=== PATIENT | male | born 1990 | race Hispanic/Latino ===

== ENCOUNTER 2024-07-17 20:28 | Emergency (ER) | payer SELFPAY ==
--- OUTSIDE RECORDS SUMMARY | 2024-07-17 20:31 | XMS REPORT | Continuity of Care Document ---
Author Name Unknown Address [address] [facility] [address] [place] [address] [facility] Address [address] [facility] 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 Name Role Phone SILVERIO CEJA Primary Care Physician JUDSON Wade Attending Clinician Unavailable JUDSON DIALLO Attending Clinician Unavailable Judson Diallo DO Attending Clinician [phone] SILVERIO CEJA Attending Clinician UnavailSILVERIO Choi Attending Clinician UnavailMike Mcknight Attending Clinician [phone] MIKE CUMMINS Attending Clinician UnavailJUDSON Rees Admitting Clinician Unavailable Allergies, Adverse Reactions, Alerts Allergy Name Allergy Type Status Severity Reaction(s) Onset Date Inactive Date Treating Clinician Comments Source NO KNOWN ALLERGIE S Drug Class Active [facility] Social History Social Habit Start Date Stop Date Quantity Comments Source Sexual orientation U [facility] History of Social function 2022-09-04 00:00:00 2022-09-04 00:00:00 [facility] Exposure to SARS-CoV-2 (event) 2022-08-10 00:00:00 2022-08-20 00:50:[address] [facility] Sex assigned at 1990 00:00:00 1990 00:00:00 [facility] Smoking Status Start Date Stop Date Source Tobacco smoking consumption unknown [facility] Medications Ordered Medication Name Filled Medication Name Start Date Stop Date Current Medication? Ordering Clinician Indication Dosage Frequency Signature (SIG) Comments Components Source iopamidol (ISOVUE 370-500 mL) injection 85 mL 2023-07 21:45: 00 05-28 22:00 :00 No [id number] 85mL 85 mL, Intravenou s, ONCE, 1 dose, On Fri05/28/24 at 1600, Routine [facility] hydrOXYzine 50 mg tablet 09-04 00:00: 00 Yes [id number] 50mg Take 1 tablet by mouth 3 (three) times daily as needed for Anxiety. [facility] famotidine 40 mg tablet 09-04 00:00: 00 Yes [id number] 40mg Take 1 tablet by mouth daily. [facility] acetaminoph en (TYLENOL) tablet 1,000 mg 08-20 08:00: 00 08-20 07:09 :00 No 1000mg 1,000 mg, Oral, ONCE, 1 dose, On Fri08/20/22 at 0200, EVONNE [facility] Vital Signs Vital Name Observation Time Observation Value Comments S ource Systolic blood pressure 2024-05-28 23:19:00 142 mm[Hg] [facility] Diastolic blood pressure 2024-05-28 23:19:00 80 mm[Hg] [facility] Heart rate 2024-05-28 23:19:00 70 /min [facility] Respiratory rate 2024-05-28 23:19:00 15 /min [facility] Oxygen saturation in Arterial blood by Pulse oximetry 2024-05-28 23:19:00 99 /min [facility] Body temperature 2024-05-28 19:41:[address] [facility] Body height 2024-05-28 19:41:00 162.6 cm [facility] Body weight 2024-05-28 19:41:00 79.833 kg [facility] BMI 2024-05-28 19:41:00 30.21 kg/m2 [facility] Systolic blood pressure 2022-09-04 15:24:00 123 mm[Hg] [facility] Diastolic blood pressure 2022-09-04 15:24:00 76 mm[Hg] [facility] Heart rate 2022-09-04 15:24:00 66 /min [facility] Body temperature 2022-09-04 15:24:[address] [facility] Respiratory rate 2022-09-04 15:24:00 18 /min [facility] Body height 2022-09-04 15:24:00 157.5 cm [facility] Body weight 2022-09-04 15:24:00 82.555 kg [facility] BMI 2022-09-04 15:24:00 33.29 kg/m2 [facility] Oxygen saturation in Arterial blood by Pulse oximetry 2022-09-04 15:24:00 99 /min [facility] Systolic blood pressure 2022-08-20 07:05:52 141 mm[Hg] [facility] Diastolic blood pressure 2022-08-20 07:05:52 96 mm[Hg] [facility] Heart rate 2022-08-20 07:05:52 74 /min [facility] Respiratory rate 2022-08-20 07:05:52 21 /min [facility] Oxygen saturation in Arterial blood by Pulse oximetry 2022-08-20 07:05:52 98 /min [facility] Body temperature 2022-08-20 06:55:[address] [facility] Body height 2022-08-20 06:55:00 160 cm [facility] Body weight 2022-08-20 06:55:00 81.647 kg [facility] BMI 2022-08-20 06:55:00 31.89 kg/m2 [facility] Procedures Procedure Date / Time Performed Performing Clinicia n Source CT SOFT TISSUE NECK W CONTRAST 2024-05-28 21:46:[address] [facility] EKG-12 LEAD 2022-08-20 07:48:28 Mike Cummins [facility] TROPONIN I 2022-08-20 07:00:00 Mike Cummins [facility] CONSENT/REFUSAL FOR DIAGNOSIS AND TREATMENT 2022-08-20 06:46:56 Doctor Unassigned, [place] [facility] NOTICE OF PRIVACY PRACTICES 2022-08-20 06:46:28 Doctor Unassigned, [place] [facility] Encounters Start Date/Time End Date/Time Encounter Type Admission Type Attending [facility] Care Facility Care Department Encounter ID Source 2024-05-28 13:43:00 2024-05-28 17:28:00 Emergency JUDSON WOOTEN [facility] [id number] [facility] 2024-05-28 13:43:00 2024-05-28 17:28:00 Emergency Judson Diallo [facility] [id number] [facility] 2023-03-04 16:30:00 2023-03-04 16:30:00 Outpatient R SILVERIO CEJA OGIVONLACEY [facility] [id number] [facility] 2023-03-04 16:00:00 2023-03-04 16:00:00 Outpatient R SILVERIO CEJA OGECHUKWU [facility] [id number] [facility] 2022-09-04 09:00:00 2022-09-04 10:10:39 Outpatient R SILVERIO CEJA OGECHUKWU [facility] [id number] [facility] 2022-09-04 09:00:00 2022-09-04 10:10:39 Office Visit Silverio Ceja [facility] ..[id number] [facility] 2022-09-04 00:00:2022-09-04 00:00:00 Letter (Out) Silverio Ceja [facility] [employer] [id number] [facility] 2022-08-20 00:54:00 2022-08-20 02:07:00 Emergency [place], [facility] [id number] [facility] 2022-08-20 00:54:00 2022-08-20 02:07:00 Emergency X RIDAGNIESZKA [facility] ERT [id number] [facility] Results Test Description Test Time Test Comments Results Resul t Comments Source CT SOFT TISSUE NECK W CONTRAST 2024-05-14 5 21:55:26 CT SOFT TISSUE NECK W CONTRAST HISTORY: Male 33 years Swallowed foreign body toothpick back of throat COMPARISON: None TECHNIQUE: Post-contrast CT images the neck obtained with multiplanarreformats. FINDINGS: The nasopharynx, oropharynx, hypopharynx and larynx are patent withoutasymmetric soft tissue density. The trachea and cervical esophagus areunremarkable. No radiopaque foreign body is visualized. The visualized portions of the oral tongue and floor of mouth areunremarkable. The parotid and submandibular glands are unremarkable. No stone is seenalong the course of the [place] or [place] duct. The thyroid gland isunremarkable. No pathologically enlarged or morphologically suspicious cervical lymphnodes are present. The visualized lung apices are clear. [facility]
[2024-07-17] MEDS ORDERED: FAMOTIDINE 20 MG/2 ML VIAL IV ONE (21:17)
[2024-07-17 21:35] LABS: Absolute Eosinophils 0.1 K/uL (0-0.5); Absolute Lymphocytes (CBC) 2.3 K/uL (0.7-4.9); Absolute Monocytes 0.4 K/uL (0.1-1.3); Absolute Neutrophil 3.7 K/uL (1.8-8.0); Basophils % 0.5 % (0-1.3); Eosinophils % 1.9 % (0-4.4); Hematocrit 44.9 % (39.6-49.0); Hemoglobin 15.3 g/dL (13.6-17.9); Lymphocytes % 34.6 % (15.3-44.8); MCH 29.4 pg (27.0-35.0); MCHC 34.2 g/dL (32.0-36.0); Monocytes % 6.6 % (3.3-12.3); Neutrophils % 56.4 % (41.7-73.7); Nucleated Red Blood Cells % 0.1 % (0-0); Platelets 237 thou/uL (152-406); RBC Red Blood Cell Count 5.22 M/uL (4.33-5.43); Red Cell Distribution Width 13.2 % (12.1-15.2)
[2024-07-17 21:52] LABS: Albumin/Globulin Ratio 0.9 (1.1-1.8); Anion Gap 9.2 mEq/L (5.0-15.0); Bilirubin Total 0.4 mg/dL (0.2-1.0); Globulin 4.3 g/dL (2.3-3.5); Potassium 4.2 mEq/L (3.5-5.1); Protein, Total 8.3 g/dL (6.4-8.2)
--- NOTE | 2024-07-17 22:28 | RAD REPORT ---
EXAM: Soft Tissue Neck W/Contr INDICATION: FORIEGN BODY Sagittal and coronal reformations were generated. This exam was performed according to our department al dose-optimization program, which includes automated exposure control, adjustment of the mA and/or kV according to patient size and/or use of iterative reconstruction technique. IV contrast was administered. COMPARISON: None. FINDINGS: Mucosal spaces: Nasopharynx, oropharynx, oral cavity, larynx and hypopharynx are normal. No suspiciou s masses are identified. Epiglottis is normal in configuration. True vocal cords cords are normally situated. Piriform sinuses are well-aerated. No radiopaque foreign body is visible. Lymph Nodes: Lymph node evaluation is limited due to non-contrast technique. No gross pathologic appe aring cervical lymph nodes. Salivary Glands: Unremarkable. Thyroid Gland: Normal Included Intracranial Structures: Grossly unremarkable. Included Orbits: Normal Paranasal Sinuses: Predominantly clear Tympanomastoid Cavities: Normal Vascular Structures: Normal Osseous Structures: No acute osseous abnormality. Included Lung Apices: Normal IMPRESSION: No acute or pathologic process identified.
--- NOTE | 2024-07-17 22:29 | RAD REPORT ---
EXAM: CT CHEST WITH CONTRAST CLINICAL INDICATION: possible foreign body TECHNIQUE: Routine CT scan of the chest with intravenous contrast. One or more of the following dose reduction techniques were used: Automated exposure control, adjustment of the mA and/or kV according to patient size, and/or iterative reconstruction. Unless otherwise specified, incidental fi ndings do not require dedicated imaging follow-up. COMPARISON: No prior exam. FINDINGS: LUNGS: Airways are clear. No evidence of airspace or interstitial process. No nodules. PLEURA: No pleural effusion. No pneumothorax. MEDIASTINUM AND LYMPH NODES: No mediastinal mass or fluid collection. Normal size mediastinal, hilar, and axillary lymph nodes. OSSEOUS STRUCTURES AND CHEST WALL: Intact. UPPER ABDOMEN: Mild diffuse fatty liver. IMPRESSION: No acute or concerning intrathoracic findings.
[2024-07-17] MEDS ORDERED: MAGNES/ALUMIN/SIMET 30ML UCUP ONE (23:05)
[2024-07-17] MEDS ORDERED: LIDOCAINE VISCOUS 2% 10ML ORAL SOLN ONE (23:06)
--- NOTE | 2024-07-18 | EDPHYS ---
Physician Documentation [facility] Name: Lasha Foster Age: 33 yrs Sex: Male : 1990 Arrival Date: 07/17/2024 Time: 20:28 Bed 6 Private MD: ED Physician Corona Evans HPI: 07/17 21:32 This 33 yrs old Male presents to ER via Ambulatory with complaints of 7 Difficulty Swallowing, Epigastric Pain, FEELS LIKE SOMETHING IS STUCK IN ESOPHAGUS, Chest Wall Pain. 21:32 33-year-old male with no significant past medical history presents to the ER jh7 complaining of painful swallowing and possible foreign body in the throat x 3 days. The patient reports that he ate chicken wings 3 days ago, choked, and feels that there may be a piece of it stuck in his throat. He states that he is still able to tolerate fluids but occasionally coughs or feels like he is choking. Also reports chest pressure worsening with taking a deep breath or swallowing.. Historical: - Allergies: 21:53 No Known Allergies; ha1 - PMHx: 21:53 None; ha1 - Immunization history:: Adult Immunizations up to date. - Infectious Disease History:: Denies. - Social history:: Smoking status: Patient denies any tobacco usage or history of. ROS: 21:32 Constitutional: Per HPI jh7 Exam: 21:32 Constitutional: This is a well developed, well nourished patient who is awake, alert, jh7 and in no acute distress. ENT: Nares patent. No nasal discharge, no septal abnormalities noted. Tympanic membranes are normal and external auditory canals are clear. Oropharynx with no redness, swelling, or masses, exudates, or evidence of obstruction, uvula midline. Mucous membranes moist. Neck: Trachea midline, no thyromegaly or masses palpated, and no cervical lymphadenopathy. Supple, full range of motion without nuchal rigidity, or vertebral point tenderness. No Meningismus. Cardiovascular: Regular rate and rhythm with a normal S1 and S2. No gallops, murmurs, or rubs. Normal PMI, no JVD. No pulse deficits. Respiratory: Lungs have equal breath sounds bilaterally, clear to auscultation and percussion. No rales, rhonchi or wheezes noted. No increased work of breathing, no retractions or nasal flaring. Abdomen/GI: Soft, non-tender, with normal bowel sounds. No distension or tympany. No guarding or rebound. No evidence of tenderness throughout. Skin: Warm, dry with normal turgor. Normal color with no rashes, no lesions, and no evidence of cellulitis. MS/ Extremity: Pulses equal, no cyanosis. Neurovascular intact. Full, normal range of motion. Neuro: Awake and alert, GCS 15, oriented to person, place, time, and situation. Cranial nerves II-XII grossly intact. Motor strength 5/5 in all extremities. Sensory grossly intact. Cerebellar exam normal. Normal gait. Vital Signs: 21:32 BP 141 / 91; Pulse 70; Resp 18; Temp 98.2; Pulse Ox 100% ; Pain 5/10; bm8 23:37 BP 123 / 92; Pulse 66; Resp 18; Temp 98.2; Pulse Ox 100% ; Pain 5/10; bm8 21:32 Pain Scale: Adult bm8 23:37 Pain Scale: Adult bm8 Sasha Coma Score: 21:32 Eye Response: spontaneous(4). Motor Response: obeys commands(6). Verbal Response: bm8 oriented(5). Total: 15. 23:37 Eye Response: spontaneous(4). Motor Response: obeys commands(6). Verbal Response: bm8 oriented(5). Total: 15. MDM: 20:32 Medical Screening Exam initiated [facility] 07/18 00:00 Differential diagnosis: gastroesophageal reflux disease, Retained foreign body, [facility] esophagitis, AMI, NSTEMI, pneumonia. Data reviewed: vital signs, nurses notes, lab test result(s), radiologic studies, CT scan. I considered the following discharge prescriptions or medication management in the emergency department Medications were administered in the Emergency Department. See MAR. Historians other than the Patient: Spouse/Significant Other: . Counseling: I had a detailed discussion with the patient and/or guardian regarding the historical points, exam findings, and any diagnostic results supporting the discharge/admit diagnosis, the need for outpatient follow up, a welfare officer, to return to the emergency department if symptoms worsen or persist or if there are any questions or concerns that arise at home. Response to treatment: the patient's symptoms have markedly improved after treatment. ED course: The patient stated his symptoms significantly improved after GI cocktail. Advised him that if his symptoms persisted, to follow-up with GI for an upper endoscopy. Clinical presentation consistent with GERD versus esophagitis. All questions and concerns were addressed.. 07/17 21:11 Order name: CBC with Diff; Complete Time: 22:07 [facility] 07/17 21:11 Order name: CMP; Complete Time: 22:07 [facility] 07/17 21:11 Order name: Lipase; Complete Time: 22:07 [facility] 07/17 22:46 Order name: Troponin High Sensitivity; Complete Time: 23:58 [facility] 07/17 21:11 Order name: CT Soft Tissue Neck W/contr; Complete Time: 22:31 [facility] 07/17 21:11 Order name: CT Chest W/ Con; Complete Time: 22:31 [facility] 07/17 21:11 Order name: IV Saline Lock; Complete Time: 21:32 [facility] 07/17 21:11 Order name: Labs collected and sent; Complete Time: 21:32 [facility] Administered Medications: 07/17 21:32 Drug: Famotidine IVP 20 mg IVP once; dilute with 10 mL 0.9% NaCl; give over 2 minutes bm8 Route: IVP; Site: right antecubital; 22:02 Follow up: Response: No adverse reaction bm8 23:20 Drug: GI Cocktail without - (Maalox PO 30 ml, Lidocaine Mucous Membrane 2 % 15 bm8 ml) PO once Route: PO; 07/18 00:07 Follow up: Response: No adverse reaction bm8 Disposition: 18:55 Co-signature as Attending Physician, Corona Evans MD I agree with the assessment sp4 and plan of care. I reviewed the patient's care provided by the Advanced Practice Provider and agree with the diagnosis and treatment plan. Disposition Summary: 07/17/24 23:59 Discharge Ordered Notes: Location: Home [facility] Problem: new [facility] Symptoms: have improved [facility] Condition: Stable [facility] Diagnosis - Dysphagia [facility] - Epigastric pain [facility] Followup: [facility] - With: Pedrito Villatoro MD - When: 2 - 3 days - Reason: Further diagnostic work-up Discharge Instructions: - Discharge Summary Sheet [facility] - Nonspecific Chest Pain, Adult [facility] - Dysphagia [facility] - Upper Endoscopy, Adult [facility] Forms: - Medication Reconciliation Form [facility] - Patient Portal Instructions [facility] - Leadership Thank You Letter [facility] Prescriptions: - Carafate 1 gram Oral Tablet - take 1 tablet ORAL route 4 times per day take on an empty stomach, beginning on jh7 waking and last dose at bedtime; 100 tablet; Refills: 0, Product Selection Permitted - Nexium 20 mg Oral Capsule - take 1 capsule ORAL route once daily; 20 capsule; Refills: 0, Product Selection [facility] Permitted Signatures: Dispatcher [employer] EDCeleste Varela, CREDENTIALING MANAGER [place] [address] Anne Shah, RN RN ha1 Corona Evans MD MD sp4 Tristan Thornton, RN RN bm8 Corrections: (The following items were deleted from the chart) 07/17 21:12 21:12 CBC+H.LAB.BRZ ordered. EDMS EDMS 21:12 21:12 COMPREHENSIVE METABOLIC PANEL+C.LAB.BRZ ordered. EDMS EDMS 21:12 21:12 LIPASE+C.LAB.BRZ ordered. EDMS EDMS 21:12 21:12 Soft Tissue Neck W/Contr+CT.RAD.BRZ ordered. EDMS EDMS 21:12 21:12 Thorax W/ Con+CT.RAD.BRZ ordered. EDMS EDMS
--- NOTE | 2024-07-18 | ER ---
Nurse's Notes [facility] Name: Lasha Foster Age: 33 yrs Sex: Male : 1990 Arrival Date: 07/17/2024 Time: 20:28 Bed 6 Private MD: Diagnosis: Dysphagia;Epigastric pain Presentation: 07/17 20:54 Chief complaint: Patient states: difficulty swallowing, it feels like something got ha1 stuck in my throat. 20:54 Coronavirus screen: Vaccine status: Patient reports being unvaccinated. Ebola Screen: ha1 No symptoms or risks identified at this time. Initial Sepsis Screen: Does the patient meet any 2 criteria? No. Patient's initial sepsis screen is negative. Does the patient have a suspected source of infection? No. Patient's initial sepsis screen is negative. Risk Assessment: Do you want to hurt yourself or someone else? Patient reports no desire to harm self or others. Onset of symptoms was July 17, 2024. 20:54 Method Of Arrival: Ambulatory ha1 20:54 Acuity: SHELIA 3 ha1 Triage Assessment: 21:24 General: Appears in no apparent distress. uncomfortable, Behavior is calm, cooperative. cm10 Neuro: No deficits noted. Level of Consciousness is awake, alert, obeys commands, Oriented to person, place, time, situation, Appropriate for age. Respiratory: No deficits noted. Airway is patent Respiratory effort is even, unlabored, Respiratory pattern is regular, symmetrical. GI: Reports FEELS LIKE SOMETHING IS STUCK IN HIS ESOPHAGUS. Derm: No deficits noted. Skin is healthy with good turgor, Skin is pink, warm \T\ dry. Historical: - Allergies: 21:53 No Known Allergies; ha1 - PMHx: 21:53 None; ha1 - Immunization history:: Adult Immunizations up to date. - Infectious Disease History:: Denies. - Social history:: Smoking status: Patient denies any tobacco usage or history of. Screenin:32 [facility] ED Fall Risk Assessment (Adult) History of falling in the last 3 months, bm8 including since admission No falls in past 3 months (0 pts) Confusion or Disorientation No (0 pts) Intoxicated or Sedated No (0 pts) Impaired Gait No (0 pts) Mobility Assist Device Used No (0 pt) Altered Elimination No (0 pt) Score/Fall Risk Level 0 - 2 = Low Risk Oriented to surroundings, Maintained a safe environment, Educated pt \T\ family on fall prevention, incl call for assistance when getting out of bed, Assessed \T\ reinforced patient's understanding of fall precautions, Hourly rounding (assess needs \T\ fall precautionary measures) done, Used ambulatory aids as needed (educated on \T\ assisted with), Used gait belt as appropriate. Abuse screen: Denies threats or abuse. Nutritional screening: No deficits noted. Tuberculosis screening: No symptoms or risk factors identified. Assessment: 21:32 General: Appears in no apparent distress. comfortable, Behavior is calm, cooperative, bm8 appropriate for age. Pain: Complains of pain in epigastric area Pain currently is 5 out of 10 on a pain scale. Quality of pain is described as burning, like something is stuck Pain began 2 weeks [employer]. Neuro: No deficits noted. Level of Consciousness is awake, alert, obeys commands, Oriented to person, place, time, situation, Appropriate for age. Cardiovascular: Reports chest pain, Heart tones S1 S2 present Capillary refill < 3 seconds in bilateral fingers Patient's skin is warm and dry. Rhythm is regular. Respiratory: Airway is patent Respiratory effort is even, unlabored, Respiratory pattern is regular, symmetrical, Breath sounds are clear bilaterally. GI: Abdomen is flat, non-distended, Bowel sounds present X 4 quads. Reports epigastric pain, Pain is 5 out of 10 on a pain scale. difficulty swallowing. : No signs and/or symptoms were reported regarding the genitourinary system. EENT: No signs and/or symptoms were reported regarding the EENT system. Derm: No signs and/or symptoms reported regarding the dermatologic system. Musculoskeletal: No signs and/or symptoms reported regarding the musculoskeletal system. 23:37 Reassessment: Patient appears in no apparent distress at this time. Patient and/or bm8 family updated on plan of care and expected duration. Pain level reassessed. Patient is alert, oriented x 3, equal unlabored respirations, skin warm/dry/pink. states that there is no real change. Patient states symptoms have not improved. 07/18 00:07 Reassessment: Patient appears in no apparent distress at this time. No changes from bm8 previously documented assessment. Patient and/or family updated on plan of care and expected duration. Pain level reassessed. Patient is alert, oriented x 3, equal unlabored respirations, skin warm/dry/pink. Vital Signs: 07/17 21:32 BP 141 / 91; Pulse 70; Resp 18; Temp 98.2; Pulse Ox 100% ; Pain 5/10; bm8 23:37 BP 123 / 92; Pulse 66; Resp 18; Temp 98.2; Pulse Ox 100% ; Pain 5/10; bm8 21:32 Pain Scale: Adult bm8 23:37 Pain Scale: Adult bm8 [place] Coma Score: 21:32 Eye Response: spontaneous(4). Motor Response: obeys commands(6). Verbal Response: bm8 oriented(5). Total: 15. 23:37 Eye Response: spontaneous(4). Motor Response: obeys commands(6). Verbal Response: bm8 oriented(5). Total: 15. ED Course: 20:31 Patient arrived in ED. [id number] 20:32 [facility] 20:32 Corona Evans MD is Attending Physician. 7 21:08 Vernell Alfonso, WARD is Primary Nurse. cm10 21:32 Patient has correct armband on for positive identification. Placed in gown. Bed in low bm8 position. Call light in reach. Side rails up X 1. Adult w/ patient. Client placed on continuous cardiac and pulse oximetry monitoring. NIBP monitoring applied. Pulse ox on. NIBP on. Door closed. Noise minimized. Warm blanket given. Pillow given. Verbal reassurance given. Head of bed elevated. 21:32 No provider procedures requiring assistance completed. Initial lab(s) drawn, by araceli short sent to lab. Inserted saline lock: 18 gauge in right antecubital area, using aseptic technique. Blood collected. Flushed with 10 mL NS. Patient maintains SpO2 saturation greater than 95% on room air. 21:53 Triage completed. ha1 22:18 CT Soft Tissue Neck W/contr In Process Unspecified. EDMS 22:18 CT Chest W/ Con In Process Unspecified. EDMS 23:58 Pedrito Villatoro MD is Referral Physician. 7 07/18 00:07 Provided Education on: post er care. 8 00:07 IV discontinued, intact, bleeding controlled, No redness/swelling at site. Pressure bm8 dressing applied. 00:13 Arm band placed on right wrist. Patient placed. bm8 Administered Medications: 07/17 21:32 Drug: Famotidine IVP 20 mg IVP once; dilute with 10 mL 0.9% NaCl; give over 2 minutes bm8 Route: IVP; Site: right antecubital; 22:02 Follow up: Response: No adverse reaction bm8 23:20 Drug: GI Cocktail without - (Maalox PO 30 ml, Lidocaine Mucous Membrane 2 % 15 bm8 ml) PO once Route: PO; 07/18 00:07 Follow up: Response: No adverse reaction bm8 Medication: 07/17 21:32 VIS not applicable for this client. bm8 Outcome: 23:59 Discharge ordered by MD. weston 07/18 00:13 Discharged to home ambulatory, bm8 Discharged to home ambulatory, with family, Condition: stable Discharge instructions given to patient, family, Instructed on discharge instructions, follow up and referral plans. no drinking with medication, no driving heavy equipment, medication usage, safety practices, Demonstrated understanding of instructions, follow-up care, medications, Prescriptions given X 2, 00:13 Patient left the ED. bm8 Signatures: Dispatcher [employer] EDMS Celeste Arreguin [email or web address] Celeste Jara, COMMERCIAL ANNOUNCER COMMERCIAL ANNOUNCER 7 Anne Shah, RN RN ha1 Vernell Alfonso, RN RN cm10 Tristan Thornton RN RN bm8 Corrections: (The following items were deleted from the chart) 07/17 23:38 23:37 Pulse 66bpm; Resp 18bpm; Pulse Ox 100%; Temp 98.2F; Pain 5/10, Adult; bm8 bm8
[2024-07-18 00:36] VITALS: TEMP 98.2; O2SAT 100
[2024-07-18 00:51] VITALS: BP 123/92
== END 2024-07-18 00:13 | disposition home or self-care (01) ==
LOC: ER 20:28
DX: R13.10 Dysphagia, unspecified (principal); R10.13 Epigastric pain; R07.89 Other chest pain
CPT/HCPCS: 36415; 70491; 71260; 80053; 83690; 84484; 85025; 96374; 99284; Q9967